=== PATIENT | male | born 1995 | race African-American/Black ===

== ENCOUNTER 2022-04-30 16:17 | Emergency (ER) | payer OTHER ==
[~2022-04-30] VITALS: Ht 167.6 cm; Wt 79.4 kg
== END 2022-04-30 17:18 | disposition home or self-care (01) ==
LOC: ER 16:22
DX: S06.0X0A Concussion without loss of consciousness, initial encounter (principal); R51.9 Headache, unspecified; V43.62XA Car passenger injured in collision with other type car in traffic accident, initial encounter; Y92.488 Other paved roadways as the place of occurrence of the external cause
CPT/HCPCS: 70450; 99283